=== PATIENT | male | born 1965 | race Caucasian/White ===

== ENCOUNTER 2016-08-31 10:47 | Day surgery (SDC) | payer BC ==
[2016-08-27 09:27] LABS: HEMATOCRIT 39.7 % (40.0-51.0); HEMOGLOBIN 14.3 g/dL (13.6-17.8)
[2016-08-27 09:37] LABS: BUN (BLOOD UREA NITROGEN) 16 MG/DL (6-23); CALCIUM, SERUM 8.5 MG/DL (8.5-10.4); CHLORIDE, SERUM 106 MMOL/L (96-112); CO2 (CARBON DIOXIDE) 28 MMOL/L (24-34); CREATININE 0.78 MG/DL (0.70-1.30); GFR AFRICAN AMERICAN 120 ML/MIN (>=60); GFR NON AFRICAN AMERICAN 104 ML/MIN (>=60); GLUCOSE, SERUM 82 MG/DL (60-99); POTASSIUM, SERUM 3.7 MMOL/L (3.5-5.3); SODIUM, SERUM 143 MMOL/L (135-148)
--- NOTE | ~2016-08-31 | OP ---
Record Of Operation [facility] [address] [place]. [address] NAME: IGLESIA JOE : 63 STATUS : [facility]#: [id number] AGE: 51 ADM/REG DATE : 08/31/16 MR#: [id number] REPORT SERV DATE: 09/20/16 DICTATED BY: CARL POND DATE: 09/20/16 REPORT STATUS : Draft TRANSCRIBED BY: RAH DATE: 09/20/16 DATE OF PROCEDURE: PREOPERATIVE DIAGNOSIS: Caries. POSTOPERATIVE DIAGNOSIS: Caries. PROCEDURE: Full mouth extraction of teeth numbers 2, 14, 19, 10, 13, 23, 5, 28, 12, 21 25, 26, 24, 22, 27, 8, 6, 7, 9, 11, 20, 29, 4, 18, 15, 3, 30, 31. ANESTHESIA: Nasotracheal general. ESTIMATED BLOOD LOSS: Less than 50 mL. COMPLICATIONS: None. DESCRIPTION OF PROCEDURE: The patient was taken to the operating room and placed under satisfactory nasotracheal general anesthesia. Mouth and face were prepped and draped in the usual fashion. Maxillary mandibular dentition as listed above were removed with an upper universal lower universal forceps. Molar teeth required surgical extraction and were removed following buccal flap being performed with a #15 blade and #9 periosteal elevator. The overlying buccal bone was removed with a Gómez drill and round stephen. The teeth were luxated from their bony sockets with a straight elevator and a lower universal forceps. The area was thoroughly irrigated with normal saline, suctioned free of debris, and the flaps were closed with 3-0 chromic suture in a running fashion. The nasopharynx and hypopharynx were suctioned free of debris. The patient's previously prepared maxillary mandibular dentures were placed and found to fit satisfactorily. The patient was then awakened, and taken to recovery room having tolerated the procedure satisfactorily. HANDY Carl Pond D.D.S. / [id number] CC: Maurilio Jansen M.D.
[~2016-08-31 10:47] MED LIST: ASA5GR PO; CRESTOR; CRESTOR40 MG PO; DIL2TAB PO; ENDOCET1 TAB PO; FISH OIL; FISH-EPA1000 MG PO; METOPROLOL PO; NIACIN PO; OMNICEF300 PO; PLAVIX PO; PRIN5 PO; TOPXL25 PO
== END 2016-08-31 16:24 | disposition home or self-care (01) ==
LOC: SDC 10:47
PROVIDERS: Oral & Maxillofacial Surgery
PROC: 0CDWXZ2 Extraction of Upper Tooth, All, External Approach (ICD-10-PCS; 2016-08-31)
PROC: 0CDXXZ2 Extraction of Lower Tooth, All, External Approach (ICD-10-PCS; principal; 2016-08-31 12:15)
DX: K02.9 Dental caries, unspecified (principal); I12.9 Hypertensive chronic kidney disease with stage 1 through stage 4 chronic kidney disease, or unspecified chronic kidney disease; N18.9 Chronic kidney disease, unspecified; F17.200 Nicotine dependence, unspecified, uncomplicated; I25.2 Old myocardial infarction; Z87.442 Personal history of urinary calculi; Z98.890 Other specified postprocedural states
CPT/HCPCS: 36415; 80048; 85014; 85018; 86850; 86900; 86901; 88300; 93005; J2270; J2405; J2710; J3010